=== PATIENT | male | born 1955 | race African-American/Black ===

== ENCOUNTER 2016-07-06 14:27 | Inpatient (IN) | payer BC ==
[~2016-07-06] VITALS: Ht 185.4 cm; Wt 97.5 kg
--- NOTE | ~2016-07-06 | H ---
[facility] [place] [address] HISTORY AND PHYSICAL Name: RONABLAKE Room #: 416-P [facility] IN M.R.#: [id number] Admission: 07/06/16 Attend Phys: Johnnie Frazier MD Discharge: Date of : 57 Report #: [id number] THIS REPORT FOR: //name// CC: Johnnie Frazier MARILU GARSIA DATE OF SERVICE: 07/06/2016 TYPE OF DICTATION: Admission H and P after amis-rd-tqkg encounter. I did see the patient and examined him on the day of admission. CHIEF COMPLAINT: Right big toe pain and swelling. HISTORY OF PRESENT ILLNESS: A 60-year-old male came today to the ER complaining of pain and swelling in the right big toe. He stated that these have been going on for 2 days only. He was just seen here a year ago secondary to left foot infection and he underwent amputation for that. He is worried about infection and amputation. The patient denies any fever or chills. He denies any pain other than this right big toe. REVIEW OF SYSTEMS: Except that mentioned in HPI, all other systems are negative. PAST MEDICAL HISTORY: Significant for type 2 diabetes mellitus. MEDICATIONS: See admission reconciliation sheet. ALLERGIES: No known drug allergies. SOCIAL HISTORY: He does not smoke, occasional alcohol drink, denies any illicit drugs. FAMILY HISTORY: Positive for diabetes mellitus. PHYSICAL EXAMINATION: GENERAL: He is alert, oriented, not in acute distress. HEENT: PERRLA. Intact extraocular muscles. No icterus. VITAL SIGNS: Temperature 36.9, pulse 89, respirations 16 and blood pressure 120/77. CHEST: Good air entry both sides. Normal respiratory effort. CARDIOVASCULAR: Regular rate and rhythm. No murmur, rub or gallop. ABDOMEN: Lax, nontender, positive bowel sounds, no organomegaly appreciated. EXTREMITIES: No cyanosis, clubbing or edema. Left foot, there is amputation of the 2 medial toes. On the right side, the big toe is swollen, tender, and seems to have . NEUROLOGIC: Cranial nerves 2-12 are intact. No focal neurological signs. [facility] [address] [address] HISTORY AND PHYSICAL Name: BLAKE REA Room #: 416-P [facility] IN [facility].#: [id number] Admission: 07/06/16 Attend Phys: Johnnie Frazier MD Discharge: Date of : 56 Report #: [id number] PSYCHIATRIC: Normal mood, affect and judgment. LABORATORY DATA: White count 10.5, hemoglobin 12.2 and hematocrit 35.9, normal differential. Sodium 133, potassium 4.2, chloride 98, carbon dioxide 24, BUN 16, creatinine 1.2, glucose 381, lactic acid 1.4, and calcium 9.8. ASSESSMENT AND PLAN: 1. Right big toe infection. We are going to admit the patient to the hospital, going to start him on Zosyn and vancomycin at the same time. At the same time, cultures were obtained from the tissue and blood cultures were obtained also. Three x-rays of the right foot did show soft tissue gas involving the great toe, necrotizing infection. There is no radiographic evidence of osteomyelitis. 2. We are going to continue his treatments for noninsulin-dependent diabetes mellitus and put him on sliding scale insulin in the same time as his blood sugars are very elevated at 380s. 3. The patient is going to be full code. 4. Deep venous thrombosis and gastrointestinal prophylaxis in the form of Lovenox and PPI. <ELECTRONICALLY SIGNED> By: Johnnie Frazier MD 07/07/16 0921 1724 [id number] Johnnie Frazier MD /nt
--- NOTE | ~2016-07-06 | HC ---
[facility] [place] [address] CONSULTATION Name: BLAKE REA Room #: 416-P [facility] IN M.R.#: [id number] Admission: 07/06/16 Attend Phys: Johnnie Frazier MD Discharge: Date of : 57 Report #: [id number] THIS REPORT FOR: //name// CC: Johnnie Frazier MARILU GARSIA DATE OF SERVICE: 07/06/2017 INFECTIOUS DISEASE CONSULTATION ATTENDING PHYSICIAN: Johnnie Frazier MD REASON FOR EVALUATION: Right great toe necrotizing infection. HISTORY OF PRESENT ILLNESS: Chart reviewed, patient examined. This is a 60-year-old male with known history of diabetes mellitus, apparently does not check her sugars frequently, has been on oral hypoglycemics, who noted over the course of roughly 1 to 2 days prior to admission had changes noted in his right great toe, this is of interest, and roughly a year ago, he had developed a similar type signs and symptoms associated with his left toe, this led to amputation. He has some degree of pain and it was increasing which raised his concern. It is not clear that he had fevers. Denies any significant pulmonary or gastrointestinal-related complaints. On evaluation, he was found to have plain film evidence of the right foot with soft tissue gas involving the 1st digit compatible with necrotizing infection. He is scheduled to undergo operative debridement tomorrow and possible amputation. He was started on combination therapy with piperacillin, tazobactam, as well as vancomycin. He is not overtly toxic. ALLERGIES: None known. CURRENT MEDICATIONS: Include ____, glimepiride, vancomycin, sliding scale insulin, Zosyn, and p.r.n. analgesics. PAST MEDICAL HISTORY: Diabetes mellitus type 2, non-insulin requiring, previous left great and second toe amputation. SOCIAL HISTORY: Nonsmoker, occasional ethanol, no illicit drug use. FAMILY HISTORY: Noncontributory. REVIEW OF SYSTEMS: As above. PHYSICAL EXAMINATION: GENERAL: He is alert, cooperative, appropriate, mild distress. VITAL SIGNS: Temperature 98.8, pulse 94, respirations 18, blood pressure [facility] [address] [place] [address] CONSULTATION Name: BLAKE REA Room #: 416-P [facility] IN M.R.#: [id number] Admission: 07/06/16 Attend Phys: Johnnie Frazier MD Discharge: Date of : 57 Report #: [id number] 146/70, appears generally well-nourished. HEENT: Unremarkable. NECK: Supple. LUNGS: Clear to auscultation. HEART: Regular, no appreciable murmur. ABDOMEN: Soft, nontender. EXTREMITIES: Right great toe has skin changes noted at the distal aspect. There is clear evidence of breakdown in the tissue, although the skin is intact. There is a desiccated appearance and feel it is mildly tender. GENITOURINARY AND RECTAL: Deferred. LABORATORY DATA: Sed rate of 91. Lactic acid 1.4. CBC: White count of 10.5, H and H 12.2 and 35.9, platelets of 184. Electrolytes: Sodium 133, potassium 4.2, chloride 98, bicarbonate 24, BUN and creatinine 16 and 1.2, glucose was 381, estimated GFR of 75. ASSESSMENT: Deep right great toe infection. I agree with empiric antimicrobial therapy. The definitive treatment, however, would be a surgical debridement, remove all the nonviable tissue. It is rather interesting that ____ appear during the cold temperature month ____ spastic-type process, it is unclear. We will await MRI results. This would likely need parenteral therapy on discharge. <ELECTRONICALLY SIGNED> By: Jaya Pratt MD 07/08/16 1000 1946 15 Jaya Pratt MD /nt
--- NOTE | ~2016-07-06 | HC ---
[facility] [place] [address] CONSULTATION Name: BLAKE REA Room #: 416-P ADM IN M.R.#: [id number] Admission: 07/06/16 Attend Phys: Johnnie Frazier MD Discharge: Date of : 57 Report #: [id number] THIS REPORT FOR: //name// CC: Johnnie Frazier MARILU GARSIA He was admitted yesterday 07/06/2016. This is a Podiatry consultation PHYSICIAN: Dr. Alexandria Contreras. HISTORY OF PRESENT ILLNESS: The patient is a 60-year-old male with a known history of diabetes, neuropathy, and at this time, uncontrolled diabetes. He was admitted yesterday for increased pain and swelling to his right big toe and the top of his foot, he has had issues with wound and infections to both feet in the past. He has Charcot bilateral, he has a history of having his left first and second toes amputated last year in June due to similar situation with gas gangrene to his toes at that time. The big toe pain he states he first noticed yesterday before being admitted yesterday evening and has been on empirical antibiotics. He does not appear toxic. PHYSICAL EXAMINATION: LOWER EXTREMITY: Complete collapse of arches bilateral with a mild mid foot rocker-bottom, bilateral, he has got absent left hallux and second toes. He has got hammertoe contractures. Bill feet with palpable DP pulses. PT is hard to palpate bilateral. There are no breaks in the skin to the left foot. On the right hallux, there is a large bulla present to the distal phalanx or to the distal toe encompassing the whole distal phalanx and extending to plantar lateral to the hallux IPJ and plantar lateral base of the proximal phalanx. There is ascending erythema and edema to the dorsal forefoot. There is no break in the foot and there is pain on palpation of the right hallux and dorsal foot. LABORATORY DATA: ESR 91. Lactic acid within normal limits. White blood cell within normal limits. H and H is 12.2 and 35.9. His glucose was at 381 on admission. His x-ray shows soft tissue emphysema encompassing the distal phalanx on the right. On the MRI came back with osteomyelitis of the right hallux and also with a pocket of gas to the distal phalanx hallux, extending to plantar IPJ level. PLAN: Discussed the patient's condition in great detail with them. He is afebrile with no leukocytosis. I reviewed the x-ray and the MRI. I recommended right hallux amputation and he will be [address] [address] CONSULTATION Name: BLAKE REA Room #: 416-P [facility] IN M.R.#: [id number] Admission: 07/06/16 Attend Phys: Johnnie Frazier MD Discharge: Date of : 57 Report #: [id number] n.p.o. after midnight. I The MRI shows definitive osteomyelitis in the distal phalanx, but there is soft tissue infection surrounding the proximal phalanx. This tissue will likely have to be removed. He agreed with plan. Surgical consent was signed and placed in the chart. I reviewed risks and benefits of surgery included but not limited to continued infection, difficulty healing, possible need for more proximal amputation, loss of limb, transfer wounds, DVT, balance issues, and continued pain. I answered all his questions and concerns. He will continue antibiotics per Dr. Delarosa's recommendations and an intraoperative culture will be obtained. <ELECTRONICALLY SIGNED> By: Alexandria Contreras DPM 07/08/16 0905 2103 0752 Alexandria Contreras DPM /nt
--- NOTE | ~2016-07-06 | HC ---
[facility] [place] [address] CONSULTATION Name: BLAKE REA Room #: 416-P [facility] IN M.R.#: [id number] Admission: 07/06/16 Attend Phys: Johnnie Frazier MD Discharge: Date of : 57 Report #: [id number] THIS REPORT FOR: //name// CC: [facility]nie [facility] DATE OF SERVICE: 07/11/2016 ENDOCRINE PROGRESS NOTE Readjusting insulin q.i.d. to improve glucose control. FBS much lower at 172. Highest glucose past day equals 266 at 0700 hours. Total insulin dosage yesterday of 47 units. <ELECTRONICALLY SIGNED> By: Daljit Casanova MD 07/12/16 1057 0833 0925 Daljit Casanova MD /nt
--- NOTE | ~2016-07-06 | S ---
[facility] [address] [address] SURGICAL PATH RPT PROCEDURE Name: BLAKE ANTHONY Room #: 416-P ADM IN M.R.#: [id number] Admission: 07/06/16 Date of : 57 Discharge: Report #: [id number] Path Case #: [id number] PATHOLOGY REPORT COLLECTION DATE: 07/07/2016 RECEIVED DATE: 07/09/2016 SUBMITTING PHYS: Dr. Alexandria Contreras OTHER PHYS: Dr. José Miguel Frazier SPECIMEN(S) RECEIVED: A.Right great toe * * * * * * * * * * * * FINAL DIAGNOSIS: "Right great toe", amputation: - Skin and subcutaneous tissue with acute and chronic inflammation, necrosis, granulation tissue and pseudoepitheliomatous hyperplasia. - Decalcified bone with acute osteomyelitis. (CLW:all; d/t: 07/10/2016) PATHOLOGIST: Roseline Antoine M.D. REPORT ELECTRONICALLY SIGNED BY: Roseline Antoine M.D. DATE/TIME: 07/10/2016 16:52 * * * * * * * * * * * * GROSS PATHOLOGY: The specimen is received in formalin labeled "Blake Anthony, right great toe". Received is an amputated digit measuring 4.3 x 3.9 x 3.8 cm in greatest dimensions and separately submitted segment of bone, displaying smooth articulating surfaces, measuring 4.7 x 2.5 x 2.1 cm. The bone margin of the toe is smooth and concave in appearance, consistent with disarticulation. The nail is present displaying a foster-richards and thickened appearance measuring 2.2 x 1.1 x 0.5 cm. The epidermal surface displays a lesion at the distal aspect near the nailbed, which is well-circumscribed, irregular in contour, focally crusted and light brown measuring 2.0 x 1.8 cm, which is 2.4 cm from the closest skin margin. The specimen is submitted representatively as follows: A1-A4 full-thickness cross section through amputated digit, following decalcification A5-A7 full-thickness cross section through separately submitted segment of bone, following decalcification. (CAA; 07/09/2016) [facility] [place] [address] SURGICAL PATH RPT PROCEDURE Name: RONABLAKE Mahendra Room #: 416-P ADM IN M.R.#: [id number] Admission: 07/06/16 Date of : 57 Discharge: Report #: [id number] Path Case #: [id number] CLINICAL HISTORY: Infected right great toe INITIAL CPT CODE(S): A; 98171, 66868 Professional services performed by [facility] at [facility] [address] [place] [address] Technical services performed by [facility] at [address] [place] [address], [address], [place] [address]. [facility] [place] [address] PHONE: [phone] DIRECTOR: Danielito Flowers M.D. * * * END OF REPORT * * *
--- NOTE | ~2016-07-06 | HC ---
[facility] [place] [address] CONSULTATION Name: RONABLAKE Mahendra Room #: 416-P [facility] IN M.R.#: [id number] Admission: 07/06/16 Attend Phys: Johnnie Frazier MD Discharge: 07/12/16 Date of : 57 Report #: [id number] THIS REPORT FOR: //name// CC: Johnnie Frazier MARILU ZIMMERMANLINDA DATE OF SERVICE: 07/12/2016 ENDOCRINE PROGRESS NOTE Continuing to readjust insulin q.i.d. Control complicated by the patient eating extra food brought in by family. FBS lower today at 109. Highest glucose past day equals 214 at 2200. Total insulin dosage yesterday increased to 46 units. Hemoglobin A1c equals 11%, showing very poor prior control. C-peptide 1.7, showing some endogenous insulin secretion, although this may improve when glucotoxicity has resolved. <ELECTRONICALLY SIGNED> By: Daljit Casanova MD 08/02/16 1049 1101 1335 Daljit Casanova MD /nt
--- NOTE | ~2016-07-06 | HC ---
[facility] [place] [address] CONSULTATION Name: RONABLAKE Mahendra Room #: 416-P [facility] IN M.R.#: [id number] Admission: 07/06/16 Attend Phys: Johnnie Frazier MD Discharge: Date of : 57 Report #: [id number] THIS REPORT FOR: //name// CC: Johnnie Frazier MARILU GARSIA DATE OF SERVICE: 07/10/2016 Converting the patient to a different q.i.d. regimen with bedtime glargine which is a true basal insulin rather than detemir and proactively attempting to control peaks and valleys utilizing non-sliding scale prandial insulin. The patient education in progress; meanwhile, lab studies are still pending to evaluate prior control. Fasting glucose still elevated at 266. <ELECTRONICALLY SIGNED> By: Daljit Casanova MD 07/11/16829 9 Daljit Casanova MD /nt
--- NOTE | ~2016-07-06 | HC ---
[facility] [place] [address] CONSULTATION Name: RONABLAKE Room #: 416-P [facility] IN M.R.#: [id number] Admission: 07/06/16 Attend Phys: Johnnie Frazier MD Discharge: Date of : 57 Report #: [id number] THIS REPORT FOR: //name// CC: Johnnie GARSIA ENDOCRINOLOGY CONSULTATION PATIENT OF: Johnnie Frazier M.D., [address] [place] [address]. SUBJECTIVE: A 60-year-old black male recently hospitalized for surgical amputation of toes on the right foot. The patient is an extremely poor historian. He states he has had diabetes for approximately 3 years. He has been on apparently 2 mg of glimepiride daily. He is not on any specific diet. He has moderate activity. He does not monitor his glucose and he does not know the name of his current primary care physician. He is unaware of any family history of diabetes. He denies any problems with hypertension, hyperlipidemia, etc. He has a prior problem with gangrene of the toes of the left foot, needing prior amputation. Otherwise, there is essentially no prior diabetes information available at this time. The patient states he thinks his last A1c was greater than 10%, but he is not sure when this was performed. Since hospitalization, the patient has been treated with Levemir and sliding scale Aspart. Other current medications include 2 mg of glimepiride daily, gabapentin, vitamin E, morphine, ondansetron and possibly other medication. OBJECTIVE: LABORATORY DATA: Sodium 140, potassium 3.9, chloride 107, CO2 of 23, BUN 9 and creatinine 1.0. Last lab glucose was 156. AST 12, bilirubin 0.4, calcium 9.3, magnesium 1.7, uric acid 1.9, alkaline phosphatase 80, SGPT 15, total protein 7.1 and albumin 2.8. Cholesterol 146, triglycerides 75, HDL 33 and LDL 98. PHYSICAL EXAMINATION: GENERAL: Well-nourished, well-developed 60-year-old black male, in no acute distress. Toes are bandage and were not examined. VITAL SIGNS: Height is reported to be 6 feet 1, weight is 230 pounds. The patient is afebrile. Heart rate 70 and regular, blood pressure 122/50. HEENT: PERRL. NECK: Supple, without masses, tenderness or thyromegaly. CHEST: Clear to P and A. HEART: Regular rhythm, without murmurs, rubs or gallops. ABDOMEN: Benign, without masses, tenderness or organomegaly. EXTREMITIES: Show no edema, cyanosis or clubbing. Peripheral pulses 2+ and equal bilaterally. NEUROLOGIC: Grossly intact. ASSESSMENT: [address] [address] CONSULTATION Name: BLAKE REA Room #: 416-P ADM IN M.R.#: [id number] Admission: 07/06/16 Attend Phys: Johnnie Frazier MD Discharge: Date of : 57 Report #: [id number] 1. Diabetes mellitus, out of control. 2. Exogenous obesity with insulin resistance and hyperinsulinemia. 3. Complications of diabetes, including peripheral vascular disease and peripheral neuropathy leading to prior bilateral foot amputations. PLAN: 1. Will evaluate prior control with hemoglobin A1c and fructosamine. 2. Will check C-peptide to evaluate endogenous insulin secretory ability. 3. I have given the patient initial education in diet and diabetes. This will be followed up by formal dietary instruction. However, diabetes education will have to be obtained as an outpatient post hospital discharge. 4. Will continue 2 mg of glimepiride per day and will readjust glargine and aspart insulin in an effort to stabilize blood sugar. 5. The patient is aware that further management will need to be followed lifelong on an outpatient basis in order to lower glucose acutely and keep control as stable as possible to avoid worsening complications in the future. Thank you very much for this consultation. I will continue to follow the patient with you during the hospitalization in an effort to stabilize glucose control and allow for appropriate wound healing. <ELECTRONICALLY SIGNED> By: Daljit Casanova MD 07/11/16 0829 1804 2314 Daljit Casanova MD /nt
--- NOTE | ~2016-07-06 | HC ---
[facility] [place] [address] CONSULTATION Name: RONABLAKE Mahendra Room #: 416-P [facility]..#: [id number] Admission: 07/06/16 Attend Phys: Johnnie Frazier MD Discharge: 07/12/16 Date of : 57 Report #: [id number] THIS REPORT FOR: //name// CC: Johnnie Frazier MARILU ZIMMERMANLINDA DATE OF SERVICE: 07/08/2016 REASON FOR CONSULTATION: Diabetic foot complication of right foot with gangrene of foot, postoperative day #2, status post right great toe amputation. HISTORY OF PRESENT ILLNESS: The patient is a 60-year-old gentleman with non-insulin dependent diabetes mellitus, who controls his diabetes with oral hypoglycemics, glimepiride 6 mg p.o. daily and/or metformin 500 mg daily. He has not taken insulin. He may have had some complications of the left foot in the past not requiring surgery. The patient did present himself to the Emergency Room at [facility] with a history of increasing pain, tenderness and swelling of his right great toe. The patient has had gangrene of his left great toe last year, causing him to have amputation of the left great toe and left second toe. The patient began to have more pain, tenderness and swelling of the right great toe, similar to his previous symptoms. He presented himself to the Emergency Room with pain and swelling. He was admitted, placed on IV antibiotics. Dr. Alexandria Contreras was consulted, took him to surgery 2 days ago, on July 06, and performed amputation of the right great toe. The patient remains on IV antibiotics with local dressing changes. PAST MEDICAL HISTORY: Non-insulin dependent diabetes mellitus, controlled with oral hypoglycemics. PAST SURGICAL HISTORY: Bilateral ankle surgeries, triple arthrodesis, status post amputation of left 1st and 2nd toe one year ago. MEDICATIONS: Include hydrocodone, Bactrim prior to admission, glimepiride 6 mg daily, vitamin C, zinc, vitamin E and cyanocobalamin. ALLERGIES: No known drug allergies. SOCIAL HISTORY: The patient does not smoke. REVIEW OF SYSTEMS: Noncontributory. PHYSICAL EXAMINATION: GENERAL: Shows a well-appearing -Liberian male. VITAL SIGNS: He is afebrile. HEENT: Mucous membranes are moist. [address] [address] CONSULTATION Name: RONABLAKE Mahendra Room #: 416-P [facility] IN M.R.#: [id number] Admission: 07/06/16 Attend Phys: Johnnie Frazier MD Discharge: 07/12/16 Date of : 57 Report #: [id number] NECK: Supple. CHEST: Shows nonlabored respirations. HEART: Shows regular rate and rhythm. ABDOMEN: Soft. EXTREMITIES: Shows surgical absence of the left foot great toe and second toe, wounds healed. Dressings are removed from the right foot showing amputation of the right great toe with nylon sutures at the remnant base. Wound has minimal drainage and appears clean and well healing for this stage. Dressings were replaced with Betadine and a Kerlix dressing. IMPRESSION: 1. Non-insulin dependent diabetes mellitus with gangrene of right great toe. 2. Postoperative day #2 status post right great toe amputation. 3. Gangrene and cellulitis of right great toe, now status post amputation. PLAN: Continue IV antibiotics. Continue local wound care with Betadine paint, nonadherent dressing, Kerlix wrap and elevation of the foot. The patient has intact pedal pulses, and vascular workup does not seem to be indicated at this time. Wound care team will follow. The patient does have weak dorsalis pedis pulses. Arterial duplex Doppler ultrasound of the right lower extremity was done today showing a normal ultrasound appearance with flow velocities and waveforms normal throughout the right common femoral, superficial femoral artery, popliteal and calf arteries. No flow limiting stenoses were present. <ELECTRONICALLY SIGNED> By: Mark Magana MD 07/14/16 1215 1419 [id number] Mark Magana MD /nt
[~2016-07-06 14:27] MED LIST: ALEVE220 MG PO; AMARYL2 MG PO; BACTRIM DS TAB1 EACH PO; COLACE100 MG PO; HYDROCODONE-AP1 EAC6 PO; HYDROCODONE-APA1 TA1 PO; KERYDIN10 ML TP; METFORMIN HCL500 MG PO; VITAMIN B-12500 MC5 PO; VITAMIN C500 M1 PO; VITAMIN E400 UNIT PO; ZINC50 M1 PO
[2016-07-06 14:28] VITALS: BP 151/86
[2016-07-06 15:36] LABS: HEMATOCRIT 35.9 % (42.0-52.0); HEMOGLOBIN 12.2 gm/dL (14.0-18.0); MCH 31.3 pg (26.0-34.0); MCHC 33.9 % (28.0-37.0); MCV 92.2 fL (80.0-100.0); PLATELET COUNT 184 thou/uL (150-400); RDW 13.6 % (10.5-14.5); WBC 10.5 thou/uL (4.0-11.0)
[2016-07-06 15:37] LABS: MANUAL DIFF YES
[2016-07-06 15:46] LABS: CALCIUM 9.8 mg/dL (8.5-10.1); CREATININE 1.2 mg/dL (0.6-1.3); POTASSIUM 4.2 mmol/L (3.5-5.1)
[2016-07-06 15:54] LABS: ABSOLUTE NEUTROPHILS 8.7 thou/uL (1.4-8.2); TOTAL CELL COUNT 100
[2016-07-06 17:09] VITALS: BP 120/77
[2016-07-06 17:33] VITALS: BP 146/87
[2016-07-06 20:00] VITALS: BP 111/70
[2016-07-07] VITALS (8 sets, daily range): BP systolic 115–142; BP diastolic 68–84
[2016-07-07 04:30] LABS: HEMATOCRIT 33.2 % (42.0-52.0); HEMOGLOBIN 11.2 gm/dL (14.0-18.0); MCHC 33.9 % (28.0-37.0); MCV 91.5 fL (80.0-100.0); RBC 3.62 mil/uL (4.50-6.00); WBC 9.5 thou/uL (4.0-11.0)
[2016-07-07 05:24] LABS: ALBUMIN 2.8 g/dL (3.4-5.0); CALCIUM 9.4 mg/dL (8.5-10.1); CREATININE 1.2 mg/dL (0.6-1.3); POTASSIUM 3.7 mmol/L (3.5-5.1); TOTAL BILIRUBIN 0.4 mg/dL (<0.1-1.0); TOTAL PROTEIN 7.1 g/dL (6.4-8.2)
[2016-07-08 00:01] VITALS: BP 136/79
[2016-07-08 01:18] LABS: ABSOLUTE NEUTROPHILS 6.2 thou/uL (1.4-8.2); BASOPHILS 0.5 % (0.0-2.0); EOSINOPHILS 0.7 % (0.0-3.0); HEMATOCRIT 33.2 % (42.0-52.0); LYMPHOCYTES 18.7 % (24.0-44.0); MCH 30.8 pg (26.0-34.0); MCV 93.4 fL (80.0-100.0); MONOCYTES 11.2 % (1.0-8.0); PLATELET COUNT 202 thou/uL (150-400); POLYS 68.9 % (36.0-66.0); RBC 3.56 mil/uL (4.50-6.00); RDW 13.8 % (10.5-14.5); WBC 8.9 thou/uL (4.0-11.0)
[2016-07-08 01:24] LABS: MANUAL DIFF NO
[2016-07-08 01:42] LABS: CALCIUM 9.3 mg/dL (8.5-10.1); CREATININE 1.2 mg/dL (0.6-1.3); POTASSIUM 4.1 mmol/L (3.5-5.1)
[2016-07-08 04:00] VITALS: BP 128/83
[2016-07-08 07:45] VITALS: BP 130/83
[2016-07-08 11:50] VITALS: BP 126/81
[2016-07-08 16:40] VITALS: BP 147/82
[2016-07-08 21:00] VITALS: BP 122/78
[2016-07-09 04:00] VITALS: BP 119/80
[2016-07-09 05:39] LABS: ABSOLUTE NEUTROPHILS 4.4 thou/uL (1.4-8.2); BASOPHILS 0.3 % (0.0-2.0); EOSINOPHILS 2.6 % (0.0-3.0); HEMATOCRIT 33.2 % (42.0-52.0); LYMPHOCYTES 27.5 % (24.0-44.0); MANUAL DIFF NO; MCH 31.1 pg (26.0-34.0); MCHC 33.2 % (28.0-37.0); MCV 93.4 fL (80.0-100.0); MONOCYTES 9.8 % (1.0-8.0); PLATELET COUNT 219 thou/uL (150-400); POLYS 59.8 % (36.0-66.0); RBC 3.55 mil/uL (4.50-6.00); WBC 7.3 thou/uL (4.0-11.0)
[2016-07-09 06:07] LABS: CALCIUM 9.3 mg/dL (8.5-10.1); POTASSIUM 3.9 mmol/L (3.5-5.1)
[2016-07-09 08:00] VITALS: BP 133/89
[2016-07-09 17:04] VITALS: BP 122/49
[2016-07-09 19:25] VITALS: BP 143/80
[2016-07-10 04:10] VITALS: BP 173/90
[2016-07-10 08:25] VITALS: BP 149/80
[2016-07-10 13:11] LABS: C-PEPTIDE 1.7 ng/mL (1.1-4.4)
[2016-07-10 14:46] VITALS: BP 149/80
[2016-07-10 17:03] VITALS: BP 137/75
[2016-07-10 19:50] VITALS: BP 136/73
[2016-07-11 04:40] VITALS: BP 148/84
[2016-07-11 05:04] LABS: ABSOLUTE NEUTROPHILS 2.5 thou/uL (1.4-8.2); BASOPHILS 0.8 % (0.0-2.0); EOSINOPHILS 5.1 % (0.0-3.0); HEMATOCRIT 30.9 % (42.0-52.0); HEMOGLOBIN 10.5 gm/dL (14.0-18.0); LYMPHOCYTES 36.6 % (24.0-44.0); MCHC 33.9 % (28.0-37.0); MCV 91.5 fL (80.0-100.0); PLATELET COUNT 280 thou/uL (150-400); POLYS 47.5 % (36.0-66.0); RBC 3.37 mil/uL (4.50-6.00); WBC 5.3 thou/uL (4.0-11.0)
[2016-07-11 05:51] LABS: MANUAL DIFF NO
[2016-07-11 08:58] VITALS: BP 155/77
[2016-07-11 16:00] VITALS: BP 167/77
[2016-07-11 20:27] VITALS: BP 149/87
[2016-07-12] VITALS (8 sets, daily range): BP systolic 145–151; BP diastolic 80–89
[2016-07-12] MEDS ORDERED: AUGMENTIN 875-1 EACH PO (13:51)
[2016-07-12] MEDS ORDERED: HYDROCODONE-APA1 TA1 PO (13:51)
[2016-07-12] MEDS ORDERED: NEURONTIN 300300 M1 PO (13:51)
[2016-07-12] MEDS ORDERED: NOVOLOG100 UNIT/1 SUBQ (14:15)
[2016-07-12] MEDS ORDERED: LANTUS100 UNIT/M SUBQ (14:15)
== END 2016-07-12 16:41 | disposition home health service (06) | DRG 853 ==
LOC: ER 14:27 → EROBS 16:23 → 4N 16:23
PROVIDERS: Family Medicine; Hospitalist; Internal Medicine Endocrinology, Diabetes & Metabolism; Nurse Practitioner Family
PROC: 0Y6P0Z0 Detachment at Right 1st Toe, Complete, Open Approach (ICD-10-PCS; principal; 2016-07-07)
DX: A48.0 Gas gangrene (principal); E43 Unspecified severe protein-calorie malnutrition; M86.8X7 Other osteomyelitis, ankle and foot; L03.115 Cellulitis of right lower limb; E11.52 Type 2 diabetes mellitus with diabetic peripheral angiopathy with gangrene; A52.16 Charcot's arthropathy (tabetic); R20.8 Other disturbances of skin sensation; E11.65 Type 2 diabetes mellitus with hyperglycemia; I10 Essential (primary) hypertension; E78.5 Hyperlipidemia, unspecified; E66.09 Other obesity due to excess calories; E11.51 Type 2 diabetes mellitus with diabetic peripheral angiopathy without gangrene; E11.40 Type 2 diabetes mellitus with diabetic neuropathy, unspecified; Z83.3 Family history of diabetes mellitus; Z98.890 Other specified postprocedural states; Z79.899 Other long term (current) drug therapy; Z79.84 Long term (current) use of oral hypoglycemic drugs; Z68.28 Body mass index [BMI] 28.0-28.9, adult; Z89.422 Acquired absence of other left toe(s); Z89.412 Acquired absence of left great toe; Z28.21 Immunization not carried out because of patient refusal
CPT/HCPCS: 10091; 50010; 50101; 50386; 50951; 56525; 57091; 62110; 62850; 70005

== ENCOUNTER → 2016-07-18 | Outpatient (CLI) | payer BC ==
[~2016-07-18] MED LIST changes: +AUGMENTIN 875-1 EACH PO; +LANTUS100 UNIT/M SUBQ; +NEURONTIN 300300 M1 PO; +NOVOLOG100 UNIT/1 SUBQ
== END ==
LOC: HYPER 05-15 06:55
DX: T87.89 Other complications of amputation stump (principal); E11.621 Type 2 diabetes mellitus with foot ulcer; L97.511 Non-pressure chronic ulcer of other part of right foot limited to breakdown of skin; E11.610 Type 2 diabetes mellitus with diabetic neuropathic arthropathy; Z89.412 Acquired absence of left great toe; Z89.411 Acquired absence of right great toe; Z72.89 Other problems related to lifestyle; Y83.5 Amputation of limb(s) as the cause of abnormal reaction of the patient, or of later complication, without mention of misadventure at the time of the procedure

== ENCOUNTER → 2016-07-30 | Outpatient (CLI) | payer BC | LOC: HYPER 06:57 | DX: T81.89XD Other complications of procedures, not elsewhere classified, subsequent encounter (principal); E11.621 Type 2 diabetes mellitus with foot ulcer; L97.422 Non-pressure chronic ulcer of left heel and midfoot with fat layer exposed; L97.411 Non-pressure chronic ulcer of right heel and midfoot limited to breakdown of skin; E11.610 Type 2 diabetes mellitus with diabetic neuropathic arthropathy; M21.41 Flat foot [pes planus] (acquired), right foot; M21.42 Flat foot [pes planus] (acquired), left foot; Z72.89 Other problems related to lifestyle; Y83.8 Other surgical procedures as the cause of abnormal reaction of the patient, or of later complication, without mention of misadventure at the time of the procedure ==

== ENCOUNTER → 2017-02-26 | Outpatient (CLI) | payer BC | LOC: HYPER 02-14 07:58 | DX: T81.89XA Other complications of procedures, not elsewhere classified, initial encounter (principal); E11.621 Type 2 diabetes mellitus with foot ulcer; L97.422 Non-pressure chronic ulcer of left heel and midfoot with fat layer exposed; R60.0 Localized edema; E11.610 Type 2 diabetes mellitus with diabetic neuropathic arthropathy; M21.42 Flat foot [pes planus] (acquired), left foot; Z72.89 Other problems related to lifestyle; Z89.412 Acquired absence of left great toe; Z89.411 Acquired absence of right great toe; Y83.8 Other surgical procedures as the cause of abnormal reaction of the patient, or of later complication, without mention of misadventure at the time of the procedure ==

== ENCOUNTER → 2017-03-04 | Outpatient (CLI) | payer BC | LOC: HYPER 07:11 | DX: T81.89XD Other complications of procedures, not elsewhere classified, subsequent encounter (principal); E11.621 Type 2 diabetes mellitus with foot ulcer; L97.422 Non-pressure chronic ulcer of left heel and midfoot with fat layer exposed; E11.610 Type 2 diabetes mellitus with diabetic neuropathic arthropathy; Z89.412 Acquired absence of left great toe; Z89.411 Acquired absence of right great toe; Z72.89 Other problems related to lifestyle; Y83.8 Other surgical procedures as the cause of abnormal reaction of the patient, or of later complication, without mention of misadventure at the time of the procedure ==

== ENCOUNTER → 2017-03-07 | Outpatient (CLI) | payer BC | LOC: HYPER 07:58 | DX: T81.89XD Other complications of procedures, not elsewhere classified, subsequent encounter (principal); E11.621 Type 2 diabetes mellitus with foot ulcer; L97.422 Non-pressure chronic ulcer of left heel and midfoot with fat layer exposed; E11.610 Type 2 diabetes mellitus with diabetic neuropathic arthropathy; M21.42 Flat foot [pes planus] (acquired), left foot; Z72.89 Other problems related to lifestyle; Z89.412 Acquired absence of left great toe; Z89.411 Acquired absence of right great toe; Y83.8 Other surgical procedures as the cause of abnormal reaction of the patient, or of later complication, without mention of misadventure at the time of the procedure ==

== ENCOUNTER → 2017-03-13 | Outpatient (CLI) | payer BC | LOC: HYPER 06:52 | DX: T81.89XD Other complications of procedures, not elsewhere classified, subsequent encounter (principal); E11.621 Type 2 diabetes mellitus with foot ulcer; L97.422 Non-pressure chronic ulcer of left heel and midfoot with fat layer exposed; R60.0 Localized edema; E11.610 Type 2 diabetes mellitus with diabetic neuropathic arthropathy; M21.42 Flat foot [pes planus] (acquired), left foot; Z89.422 Acquired absence of other left toe(s); Z89.421 Acquired absence of other right toe(s); Z72.89 Other problems related to lifestyle; Y83.8 Other surgical procedures as the cause of abnormal reaction of the patient, or of later complication, without mention of misadventure at the time of the procedure ==

== ENCOUNTER → 2017-03-20 | Outpatient (CLI) | payer BC | LOC: HYPER 07:01 | DX: T81.89XD Other complications of procedures, not elsewhere classified, subsequent encounter (principal); E11.621 Type 2 diabetes mellitus with foot ulcer; L97.422 Non-pressure chronic ulcer of left heel and midfoot with fat layer exposed; R60.0 Localized edema; E11.610 Type 2 diabetes mellitus with diabetic neuropathic arthropathy; M21.42 Flat foot [pes planus] (acquired), left foot; Z72.89 Other problems related to lifestyle; Z89.412 Acquired absence of left great toe; Y83.8 Other surgical procedures as the cause of abnormal reaction of the patient, or of later complication, without mention of misadventure at the time of the procedure ==

== ENCOUNTER → 2017-03-27 | Outpatient (CLI) | payer BC | LOC: HYPER 07:03 | DX: T81.89XD Other complications of procedures, not elsewhere classified, subsequent encounter (principal); E11.621 Type 2 diabetes mellitus with foot ulcer; L97.422 Non-pressure chronic ulcer of left heel and midfoot with fat layer exposed; R60.0 Localized edema; E11.610 Type 2 diabetes mellitus with diabetic neuropathic arthropathy; M21.42 Flat foot [pes planus] (acquired), left foot; Z89.412 Acquired absence of left great toe; Z89.411 Acquired absence of right great toe; Z72.89 Other problems related to lifestyle; Y83.8 Other surgical procedures as the cause of abnormal reaction of the patient, or of later complication, without mention of misadventure at the time of the procedure ==

== ENCOUNTER → 2017-04-03 | Outpatient (CLI) | payer BC | LOC: HYPER 07:12 | DX: T81.89XD Other complications of procedures, not elsewhere classified, subsequent encounter (principal); E11.621 Type 2 diabetes mellitus with foot ulcer; L97.422 Non-pressure chronic ulcer of left heel and midfoot with fat layer exposed; R60.0 Localized edema; E11.610 Type 2 diabetes mellitus with diabetic neuropathic arthropathy; M21.42 Flat foot [pes planus] (acquired), left foot; Z89.412 Acquired absence of left great toe; Z72.89 Other problems related to lifestyle; Y83.8 Other surgical procedures as the cause of abnormal reaction of the patient, or of later complication, without mention of misadventure at the time of the procedure ==

== ENCOUNTER → 2018-01-19 | Outpatient (CLI) | payer BC | LOC: HYPER 04-10 07:07 | DX: E11.621 Type 2 diabetes mellitus with foot ulcer (principal); L97.521 Non-pressure chronic ulcer of other part of left foot limited to breakdown of skin; L89.893 Pressure ulcer of other site, stage 3; E11.610 Type 2 diabetes mellitus with diabetic neuropathic arthropathy; M21.42 Flat foot [pes planus] (acquired), left foot ==

== ENCOUNTER → 2018-02-17 | Outpatient (CLI) | payer BC | LOC: HYPER 02-16 07:42 | DX: E11.621 Type 2 diabetes mellitus with foot ulcer (principal); L89.893 Pressure ulcer of other site, stage 3; L97.521 Non-pressure chronic ulcer of other part of left foot limited to breakdown of skin; E11.610 Type 2 diabetes mellitus with diabetic neuropathic arthropathy; M21.42 Flat foot [pes planus] (acquired), left foot ==

== ENCOUNTER → 2018-10-07 | Outpatient (CLI) | payer OTHER | LOC: HYPER 06:49 | DX: T87.89 Other complications of amputation stump (principal); E11.621 Type 2 diabetes mellitus with foot ulcer; L97.512 Non-pressure chronic ulcer of other part of right foot with fat layer exposed; L84 Corns and callosities; E11.610 Type 2 diabetes mellitus with diabetic neuropathic arthropathy; E11.40 Type 2 diabetes mellitus with diabetic neuropathy, unspecified; Z89.411 Acquired absence of right great toe; Z89.412 Acquired absence of left great toe; Y83.5 Amputation of limb(s) as the cause of abnormal reaction of the patient, or of later complication, without mention of misadventure at the time of the procedure ==

== ENCOUNTER → 2018-10-14 | Outpatient (CLI) | payer OTHER | LOC: HYPER 06:51 | DX: T87.89 Other complications of amputation stump (principal); E11.610 Type 2 diabetes mellitus with diabetic neuropathic arthropathy; M21.42 Flat foot [pes planus] (acquired), left foot; L84 Corns and callosities; Y83.5 Amputation of limb(s) as the cause of abnormal reaction of the patient, or of later complication, without mention of misadventure at the time of the procedure ==

== ENCOUNTER → 2018-11-19 | Outpatient (CLI) | payer OTHER | LOC: HYPER 06:47 | DX: T87.89 Other complications of amputation stump (principal); E11.621 Type 2 diabetes mellitus with foot ulcer; L97.511 Non-pressure chronic ulcer of other part of right foot limited to breakdown of skin; L89.893 Pressure ulcer of other site, stage 3; E11.610 Type 2 diabetes mellitus with diabetic neuropathic arthropathy; M21.42 Flat foot [pes planus] (acquired), left foot; L84 Corns and callosities; E11.40 Type 2 diabetes mellitus with diabetic neuropathy, unspecified; Y83.5 Amputation of limb(s) as the cause of abnormal reaction of the patient, or of later complication, without mention of misadventure at the time of the procedure ==

== ENCOUNTER → 2019-01-21 | Outpatient (CLI) | payer OTHER ==
[~2019-01-21] MED LIST changes: +AMOXICILLIN 50500 M1 PO; +GLUCOPHAGE1000 MG PO; +HYDROCODON-ACE1 EAC7 PO; +LISINOPRIL2.5 MG PO
== END ==
LOC: HYPER 06:55
DX: E11.621 Type 2 diabetes mellitus with foot ulcer (principal); L89.893 Pressure ulcer of other site, stage 3; L97.511 Non-pressure chronic ulcer of other part of right foot limited to breakdown of skin; E11.610 Type 2 diabetes mellitus with diabetic neuropathic arthropathy; E11.40 Type 2 diabetes mellitus with diabetic neuropathy, unspecified; L84 Corns and callosities; M21.42 Flat foot [pes planus] (acquired), left foot

== ENCOUNTER → 2019-02-12 | Outpatient (CLI) | payer OTHER | LOC: HYPER 08:02 | DX: E11.621 Type 2 diabetes mellitus with foot ulcer (principal); L97.521 Non-pressure chronic ulcer of other part of left foot limited to breakdown of skin; L97.511 Non-pressure chronic ulcer of other part of right foot limited to breakdown of skin; L89.893 Pressure ulcer of other site, stage 3; E11.610 Type 2 diabetes mellitus with diabetic neuropathic arthropathy; E11.40 Type 2 diabetes mellitus with diabetic neuropathy, unspecified; L84 Corns and callosities; M21.42 Flat foot [pes planus] (acquired), left foot ==

== ENCOUNTER → 2019-03-01 | Outpatient (CLI) | payer OTHER | LOC: HYPER 08:00 | DX: E11.621 Type 2 diabetes mellitus with foot ulcer (principal); L84 Corns and callosities; L97.511 Non-pressure chronic ulcer of other part of right foot limited to breakdown of skin; L89.893 Pressure ulcer of other site, stage 3; E11.610 Type 2 diabetes mellitus with diabetic neuropathic arthropathy; E11.40 Type 2 diabetes mellitus with diabetic neuropathy, unspecified; Z89.411 Acquired absence of right great toe ==

== ENCOUNTER → 2019-04-30 | Outpatient (CLI) | payer OTHER | LOC: MRI 03-05 14:29 → HYPER 08:12 | DX: E11.621 Type 2 diabetes mellitus with foot ulcer (principal); L97.511 Non-pressure chronic ulcer of other part of right foot limited to breakdown of skin; E11.40 Type 2 diabetes mellitus with diabetic neuropathy, unspecified; S61.217A Laceration without foreign body of left little finger without damage to nail, initial encounter; L84 Corns and callosities; L02.512 Cutaneous abscess of left hand; X58.XXXA Exposure to other specified factors, initial encounter; Y93.89 Activity, other specified; Y92.89 Other specified places as the place of occurrence of the external cause; Y99.8 Other external cause status ==

== ENCOUNTER → 2019-05-11 | Outpatient (CLI) | payer OTHER | LOC: HYPER 07:34 | DX: S61.217D Laceration without foreign body of left little finger without damage to nail, subsequent encounter (principal); S61.412D Laceration without foreign body of left hand, subsequent encounter; L02.512 Cutaneous abscess of left hand; L84 Corns and callosities; G62.9 Polyneuropathy, unspecified; X58.XXXD Exposure to other specified factors, subsequent encounter ==

== ENCOUNTER → 2019-05-18 | Outpatient (CLI) | payer OTHER | LOC: HYPER 07:47 | DX: S61.412D Laceration without foreign body of left hand, subsequent encounter (principal); E11.40 Type 2 diabetes mellitus with diabetic neuropathy, unspecified; L02.512 Cutaneous abscess of left hand; L84 Corns and callosities; X58.XXXD Exposure to other specified factors, subsequent encounter ==

== ENCOUNTER → 2019-05-25 | Outpatient (CLI) | payer OTHER | LOC: HYPER 07:39 | DX: S61.412D Laceration without foreign body of left hand, subsequent encounter (principal); L02.512 Cutaneous abscess of left hand; E11.40 Type 2 diabetes mellitus with diabetic neuropathy, unspecified; L84 Corns and callosities; Z79.84 Long term (current) use of oral hypoglycemic drugs; X58.XXXD Exposure to other specified factors, subsequent encounter ==

== ENCOUNTER → 2020-01-26 | Outpatient (CLI) | payer OTHER | LOC: RAD 15:24 | PROVIDERS: ATTEND Family Medicine | DX: S40.012A Contusion of left shoulder, initial encounter (principal); M54.9 Dorsalgia, unspecified; M47.812 Spondylosis without myelopathy or radiculopathy, cervical region; M48.02 Spinal stenosis, cervical region; M43.12 Spondylolisthesis, cervical region; M19.012 Primary osteoarthritis, left shoulder; Y92.89 Other specified places as the place of occurrence of the external cause; W19.XXXA Unspecified fall, initial encounter ==

== ENCOUNTER → 2020-04-19 | Outpatient (CLI) | payer OTHER | LOC: HYPER 15:19 | PROVIDERS: ATTEND Emergency Medicine | DX: S90.821D Blister (nonthermal), right foot, subsequent encounter (principal); E11.621 Type 2 diabetes mellitus with foot ulcer; L97.412 Non-pressure chronic ulcer of right heel and midfoot with fat layer exposed; L84 Corns and callosities; E11.40 Type 2 diabetes mellitus with diabetic neuropathy, unspecified; Z79.84 Long term (current) use of oral hypoglycemic drugs; Z89.411 Acquired absence of right great toe; X58.XXXD Exposure to other specified factors, subsequent encounter ==

== ENCOUNTER → 2020-04-26 | Outpatient (CLI) | payer OTHER | LOC: HYPER 10:27 | PROVIDERS: ATTEND Emergency Medicine | DX: E11.621 Type 2 diabetes mellitus with foot ulcer (principal); L97.412 Non-pressure chronic ulcer of right heel and midfoot with fat layer exposed; L84 Corns and callosities; E11.40 Type 2 diabetes mellitus with diabetic neuropathy, unspecified; Z79.84 Long term (current) use of oral hypoglycemic drugs; Z89.411 Acquired absence of right great toe ==

== ENCOUNTER → 2020-05-17 | Outpatient (CLI) | payer OTHER | LOC: HYPER 15:20 | PROVIDERS: ATTEND Emergency Medicine | DX: E11.621 Type 2 diabetes mellitus with foot ulcer (principal); L97.412 Non-pressure chronic ulcer of right heel and midfoot with fat layer exposed; L97.512 Non-pressure chronic ulcer of other part of right foot with fat layer exposed; L84 Corns and callosities; E11.40 Type 2 diabetes mellitus with diabetic neuropathy, unspecified; Z79.84 Long term (current) use of oral hypoglycemic drugs; Z89.411 Acquired absence of right great toe ==

== ENCOUNTER → 2020-05-24 | Outpatient (CLI) | payer OTHER | LOC: HYPER 15:40 | PROVIDERS: ATTEND Emergency Medicine | DX: E11.621 Type 2 diabetes mellitus with foot ulcer (principal); L97.412 Non-pressure chronic ulcer of right heel and midfoot with fat layer exposed; L84 Corns and callosities; E11.610 Type 2 diabetes mellitus with diabetic neuropathic arthropathy; E11.40 Type 2 diabetes mellitus with diabetic neuropathy, unspecified; E11.65 Type 2 diabetes mellitus with hyperglycemia; Z79.84 Long term (current) use of oral hypoglycemic drugs; Z89.411 Acquired absence of right great toe ==

== ENCOUNTER → 2020-05-30 | Outpatient (CLI) | payer OTHER | LOC: HYPER 09:45 | PROVIDERS: ATTEND Emergency Medicine | DX: E11.621 Type 2 diabetes mellitus with foot ulcer (principal); L97.412 Non-pressure chronic ulcer of right heel and midfoot with fat layer exposed; L84 Corns and callosities; E11.610 Type 2 diabetes mellitus with diabetic neuropathic arthropathy; E11.40 Type 2 diabetes mellitus with diabetic neuropathy, unspecified; E11.65 Type 2 diabetes mellitus with hyperglycemia; Z79.84 Long term (current) use of oral hypoglycemic drugs; Z89.411 Acquired absence of right great toe ==

== ENCOUNTER → 2020-06-13 | Outpatient (CLI) | payer OTHER | LOC: HYPER 15:05 | PROVIDERS: ATTEND Emergency Medicine | DX: E11.621 Type 2 diabetes mellitus with foot ulcer (principal); L97.412 Non-pressure chronic ulcer of right heel and midfoot with fat layer exposed; L84 Corns and callosities; E11.610 Type 2 diabetes mellitus with diabetic neuropathic arthropathy; E11.40 Type 2 diabetes mellitus with diabetic neuropathy, unspecified; E11.65 Type 2 diabetes mellitus with hyperglycemia; Z79.84 Long term (current) use of oral hypoglycemic drugs; Z89.411 Acquired absence of right great toe ==

== ENCOUNTER → 2020-06-15 | Outpatient (CLI) | payer BC, OTHER | LOC: MRI 10:18 | PROVIDERS: ATTEND Emergency Medicine | DX: M19.071 Primary osteoarthritis, right ankle and foot (principal); L97.512 Non-pressure chronic ulcer of other part of right foot with fat layer exposed; M14.671 Charcot's joint, right ankle and foot; E11.40 Type 2 diabetes mellitus with diabetic neuropathy, unspecified ==

== ENCOUNTER 2020-07-04 15:57 | Inpatient (IN) | payer BC, OTHER ==
[~2020-07-04] VITALS: Ht 185.4 cm; Wt 97.5 kg
--- NOTE | ~2020-07-04 | HC ---
[facility] [place] [address] CONSULTATION Name: BLAKE REA Room #: 434-P [facility] IN ..#: [id number] Admission: 07/04/20 Attend Phys: Sujit Magdaleno Discharge: Date of : 57 Report #: [id number] THIS REPORT FOR: cc: Janet Suazo MD, Nora P. MD Stephens, Thad A. MD ~ DATE OF SERVICE: 07/05/2020 WOUND CARE CONSULTATION PERSONAL PHYSICIAN: Dr. Janet Suazo CHIEF COMPLAINT: Right plantar foot ulcer, infected. HISTORY OF PRESENT ILLNESS: This is a 64-year-old black male who has been a patient of mine for several months, who we have been following for chronic ulceration on the plantar aspect of his right foot secondary to Charcot arthropathy, diabetes, approximately 2 weeks ago, the ulcer, which had been slowly getting better appeared to be somewhat worse. MRI was ordered at that time, which showed no signs of osteomyelitis or abscess. At that time, we changed over to a different dressing, which was Dakin's moist gauze and encouraged him to wear his [place] DEE-NI' boot at all times. The patient then showed up in my clinic yesterday and was found to have a foul smelling and foul drainage odor with increased size and depth and necrotic tissue. The patient at that time was directly admitted to the hospitalist service. It was felt the patient needed a repeat MRI per Orthopedics to evaluate for underlying osteomyelitis now. The patient has developed osteomyelitis that he will require lplid-ilr-onev amputation. There is no osteomyelitis. I plan on doing just a wide debridement and possible wound VAC therapy. The patient denies any other associated wounds. The patient does admit to the fact that his blood sugars have been consistently in the 300 range over the past several months. The patient only takes metformin at this time. The patient has no other associated wounds. PAST MEDICAL HISTORY: Significant for diabetes mellitus, poorly controlled, previous second toe amputation back in May 2015, previous amputation of the right great toe in 2016. CURRENT MEDICATIONS: Multiple, I reviewed the patient's medication list. DRUG ALLERGIES: None. SOCIAL HISTORY: The patient does not smoke. Drinks alcohol occasionally. Lives independently. [facility] [address] [place] [address] CONSULTATION Name: BLAKE REA Room #: 434-P [facility] IN ..#: [id number] Admission: 07/04/20 Attend Phys: Sujit Magdaleno Discharge: Date of : 57 Report #: [id number] FAMILY HISTORY: Not pertinent to current medical condition. REVIEW OF SYSTEMS: CONSTITUTIONAL: The patient denies fevers or chills. NEUROLOGIC: The patient denies numbness, tingling, weakness in arms or legs. Does have chronic neuropathy in his feet. EYES: No complaints. ENT: No complaints. CARDIAC: The patient denies chest pain, palpitations, peripheral edema. RESPIRATORY: The patient denies shortness of breath, cough or wheezes. GASTROINTESTINAL: The patient denies nausea, vomiting, abdominal pain. GENITOURINARY: The patient denies urgency or frequency. MUSCULOSKELETAL: No complaints. SKIN: Chronic ulcer on the plantar aspect of his right foot. PHYSICAL EXAMINATION: VITAL SIGNS: Temperature 37.2, pulse 86, respirations 20, BP 109/78. GENERAL: This is an alert and oriented x 3, pleasant black male who is in no obvious distress. HEENT: Normocephalic, atraumatic. Mucous membranes are somewhat dry. Pupils are round. Sclerae white. NECK: Without JVD. LUNGS: Clear. HEART: Regular. ABDOMEN: Soft, nontender. EXTREMITIES: The patient moves all extremities without difficulty. Distal pulses are intact. Plantar aspect of the right foot is a chronic ulcer, which is foul smelling with necrotic tissue. There is surrounding callus. There appears to probe down to bone; however, there is no bone exposed. No other associated wounds are noted. NEUROLOGIC: Cranial nerves 2-12 grossly intact. Motor and sensory grossly intact. LABORATORY VALUES: White count 5.6 and hemoglobin 11.5. Sed rate 60. BUN 23, creatinine 1.4, glucose was 433 on admission. IMPRESSION: 1. Diabetic ulcer on the right plantar foot with cellulitis. 2. Charcot arthropathy, right foot. 3. History of partial first ray amputation. 4. History of right great toe gangrene, status post amputation. 5. Uncontrolled type 2 diabetes. 6. Mild protein-calorie malnutrition, albumin 3.4. PLAN: We will have the start with Dakin's wet to dry dressings at this time, [address] [address] CONSULTATION Name: BLAKE REA Room #: 434-P [facility] IN M.R.#: [id number] Admission: 07/04/20 Attend Phys: Sujit Magdaleno Discharge: Date of : 57 Report #: [id number] pending current MRI and orthopedic evaluation. Make sure we might maximize patient's oral protein supplementation for healing. We will await orthopedic evaluation and pending on the MRI. If there is no osteomyelitis, then a wide excision will be done and possibly wound VAC placement. If there is osteomyelitis, the patient will require a tujag-csi-kcsu amputation. I had a long talk with the patient in regards to the amputation, spent greater than 30 minutes at the bedside with the patient and answering his questions and concerns were reviewing the lab work. The patient also would benefit from more tighter diabetic glycemic control. He is very agreeable to see an answering service agent. At this time, we will continue all other current medications. I appreciate ability to consult. By: [id number] Pranav Connors MD /andre
--- NOTE | ~2020-07-04 | O ---
[facility] [place] [address] OPERATIVE REPORT Name: BLAKE REA Room #: 434-P [facility] IN M.R.#: [id number] Admission: 07/04/20 Attend Phys: Sujit Magdaleno Discharge: Date of : 57 Report #: [id number] THIS REPORT FOR: cc: Janet Suazo MD, Nora P. MD Abraham,Juan Ospina MD ~ DATE OF SERVICE: 07/06/2020 PREOPERATIVE DIAGNOSIS: Right foot plantar diabetic ulcer. POSTOPERATIVE DIAGNOSIS: Right foot plantar diabetic ulcer. PROCEDURE: 1. Debridement, right foot plantar diabetic ulcer, 4 x 4 cm. 2. Placement of wound VAC, right foot ulcer. SURGEON: Dr. Juan Calzada ANESTHESIA: LMA. ESTIMATED BLOOD LOSS: 25 mL. SPECIMENS: Cultures were taken and sent. CONDITION UPON LEAVING THE OPERATING ROOM: Stable. INDICATIONS FOR PROCEDURE: The patient is a 64-year-old gentleman with right Charcot foot secondary to diabetes. He has had a plantar ulcer on his foot that is what appeared to be getting worse over the past several weeks. He had an MRI scan that showed no evidence of osteomyelitis and after discussion with him, he elected for local debridement of the ulcer and placement of wound VAC in hopes that we can get this to heal and avoid amputation. DESCRIPTION OF PROCEDURE: Risks, benefits, alternatives, complications were discussed in detail with the patient including but not limited to risk of anesthesia, risk of damage to nerves, arteries, blood vessels, risk for continued infection and need for midlm-zns-nxvu amputation. Informed consent was obtained from the patient. Right foot was appropriately marked in the preoperative holding area. He had already been on IV Zosyn for preoperative antibiotics. He was brought to the operating room and placed in supine position on operating room table. LMA anesthesia was induced without complication. Right lower extremity was prepped and draped in normal sterile fashion. Timeout was performed properly identifying the patient and procedure as well as the instrumentation. All in the operating room were in agreement. The edges of the ulcer were then debrided sharply with #10 blade until fresh bleeding tissue. [facility] [address] [place] [address] OPERATIVE REPORT Name: BLAKE REA Room #: 434-P [facility] IN M.R.#: [id number] Admission: 07/04/20 Attend Phys: Sujit Magdaleno Discharge: Date of : 57 Report #: [id number] The ulcer itself was debrided with a rongeur to good bleeding tissue were removed all visible necrotic and infected tissue. There was actually excellent bleeding tissue. This was thoroughly irrigated with Pulsavac lavage and then Prevena wound VAC was placed. The patient tolerated this procedure well and went to the recovery room under care of anesthesia postoperatively. By: [id number] Juan Calzada MD /nt
[~2020-07-04 15:57] MED LIST changes: -FREESTYLE LIBR1 EAC2 MISCELL; -LOSARTAN POTASS50 MG PO; -METFORMIN HCL1000 MG PO
[2020-07-04 16:21] VITALS: BP 122/77
[2020-07-04] MEDS ORDERED: METFORMIN HCL1000 MG PO (16:25)
[2020-07-04] MEDS ORDERED: LOSARTAN POTASS50 MG PO (16:26)
[2020-07-04 17:12] LABS: ABSOLUTE NEUTROPHILS 3.3 thou/uL (1.4-8.2); HEMATOCRIT 35.5 % (42.0-52.0); HEMOGLOBIN 11.5 gm/dL (14.0-18.0); LYMPHOCYTES 30.6 % (24.0-44.0); MCH 29.7 pg (26.0-34.0); MCHC 32.3 g/dL (28.0-37.0); MCV 92.1 fL (80.0-100.0); MONOCYTES 7.2 % (1.0-8.0); PLATELET COUNT 212 thou/uL (150-400); POLYS 59.2 % (36.0-66.0); RBC 3.85 mil/uL (4.50-6.00); RDW 14.4 % (10.5-14.5); WBC 5.6 thou/uL (4.0-11.0)
[2020-07-04 17:35] LABS: CALCIUM 10.9 mg/dL (8.5-10.1); CREATININE 1.4 mg/dL (0.7-1.3); POTASSIUM 4.5 mmol/L (3.5-5.1)
[2020-07-04 17:40] LABS: ALBUMIN 3.4 g/dL (3.4-5.0); TOTAL BILIRUBIN 0.2 mg/dL (0.2-1.0); TOTAL PROTEIN 7.8 g/dL (6.4-8.2)
[2020-07-04 20:46] VITALS: BP 122/77
[2020-07-04 21:20] VITALS: BP 127/82
[2020-07-04 21:45] VITALS: BP 123/69
[2020-07-05 03:30] VITALS: BP 121/72
--- NOTE | 2020-07-05 06:03 | NUR ---
PT WAS ADMITTED TO THE UNIT ROM THE ER IN A STABLE CONDITION.ADMISSION HX,EDUCATION AND ASSESSMENT COMPLETED.PT DENIED PAIN SO FAR.DRSG TO HIS WOUND ON PLANTAR R FOOT CHANGED.PT CONT ON IV ABX ORDERED.URINAL AT BEDSIDE.PT ABLE TO MAKE HIS NEEDS KNOWN.CALL LIGHT WITHIN REACH.
[2020-07-05 08:29] VITALS: BP 144/79
[2020-07-05] MEDS ORDERED: FREESTYLE LIBR1 EAC2 MISCELL (09:33)
--- NOTE | 2020-07-05 10:48 | NUR ---
Assumed care of pt at 0700. Pt a&ox4. Blood sugar in the 300s. Hospital doctor explained to pt extensively about diabetes medical management. After doctor leaves the room, pt states he is going to wait a little bit longer for wound doctor and ortho doctor and then he might leave the hospital later today. IV antibiotics infusing. Ritchie pain. Call light within reach. Will continue to monitor.
--- NOTE | 2020-07-05 15:30 | NUR ---
ASSESSMENT: CM REVIEWED CHART AND SPOKE WITH PT. PT IS ALERT AND ORIENTED X4. PT REPORTS LIVING IN A HOME ALONE. PT WAS ADMITTED WITH DIABETIC FOOT ULCER. WOUND CARE AND ORTHO HAVE BEEN CONSULTED AND PT IS ON IV ANBX. PT REPORTS HAVING A CANE AND WALKER AT HOME. PT REPORTS HE HAS HAD [facility] IN THE PAST. PTS PCP IS DR. MINI AMBRIZ. PT REPORTS HE IS AGREEABLE WITH HH AT DISCHARGE IF NEEDED AND NO PREFERENCE OF HH COMPANY AND IS OK WITH USING [facility] AGAIN. [facility].
[2020-07-05 17:18] VITALS: BP 109/78
[2020-07-05 19:10] VITALS: BP 110/59
--- NOTE | 2020-07-06 01:57 | NUR ---
PT DENIES PAIN. NPO SINCE MIDNOC FOR I/D OF FOOT WOUND. AFEBRILE. MAKES NEEDS KNOWN. SOCKS OVER FEET WHICH HAVE DRSG INTACT.
[2020-07-06 07:45] VITALS: BP 139/84
--- NOTE | 2020-07-06 13:10 | NUR ---
on-going assessment: CM REVIEWED CHART AND SPOKE WITH PT. PT HAD DEBRIDEMENT OF RIGHT FOOT WOUND TODAY AND PLACEMENT OF WOUNDVAC. CM SPOKE WITH ATTENDING WHO REPORTS PT WILL NEED WOUND VAC FOR HOME AND HOME HEALTH. DORIS SPOKE WITH PT AND HE HAS NO PREFERENCE OF COMPANY AND STATES USING [facility] IN THE PAST. PSYCHIATRICS REFERRAL SENT AND THEY CAN ACCEPT PT AND ARE AWARE HE WILL GO HOME WITH A WOUND VAC. CM NOTIFIED MARIE IN WOUNDCARE ABOUT HOME WOUND VAC AND SHE IS NOT HERE IN THE HOSPITAL TODAY BUT GAVE CONTACT TO BRUCE AT [facility] WHO HELPS ASSIST IN GEETING THE HOME WOUND VAC FOR PT. CM COMPLETED [employer] INSURANCE AUTH FORM AND FAXED TO [facility] AND NOTIFIED BRUCE AND HE STATES HE WILL START WORKING ON IT AND DEPENDING ON INSURANCE CAN TAKE 1-2 DAYS. PT ALSO STATING THAT HIS INSURANCE IS LIKELY GOING TO TERM SOON. HE REPORTS HE IS NO LONGER EMPLOYED SINCE 06/07 AND WAS TOLD HIS INSURANCE WAS STILL GOOD FOR 30 DAYS AFTER. CM NOTIFIED BRUCE AT [facility] AND HE REPORTS THEY WILL RUN IN THROUGH HIS INSURANCE AND THEN CAN WORK ON [employer] OR OTHER RESOURCES AFTER THAT. [facility]. FAX [facility] DISCHARGE ORDERS TO FAX:[phone]. ID HAS ALSO BEEN CONSULTED TO SEE PATIENT. PT WILL NOT BE ABLE TO LEAVE UNTIL HOME WOUND VAC IS DELIVERED TO THE HOSPITAL AND PLACED ON PATIENT. CONTACT FOR BRUCE AT [facility] FOR WOUND VAC IS [phone].
--- NOTE | 2020-07-06 15:13 | NUR ---
ON-GOING ASSESSMENT: CM REVIEWED CHART AND SPOKE WITH PT. PT HAD DEBRIDEMENT TODAY AND WOUND VAC WAS PLACED (PREVENA). PT IS STILL CURRENTLY ON IV ANBX. PT REPORTS THAT HE IS NO LONGER EMPLOYEED SINCE 06/07 AND THINKS HIS INSURANCE IS ONLY ACTIVE FOR 20 DAYS AFTER THAT AND SHOULD RUN OUT HERE SOON. PT IS NEEDING HOME HEALTH AND IS AGREEABLE TO USE [facility] WHO HE HAS HAD IN THE PAST. CM FAXED REFERRAL AND THEY HAVE ACCEPTED HIM. ONCE PATIENT IS STABLE TO DISCHARGE FAX ORDERS TO [facility]:[phone]. PT IS ALSO NEEDING CRUTCHES FOR AMBULATION. PT HAS NO PREFERENCE OF DME COMPANY. CM NOTIFIED LIASON AT [facility] AND SHE IS DELIVERING THEM TO HIS ROOM. ID WAS CONSULTED AND AWAITING FURTHER INPUT.
[2020-07-06 15:56] VITALS: BP 139/84
--- NOTE | 2020-07-06 18:12 | NUR ---
Assumed care of pt. at 0700. Pt. is calm and cooperative. Pt. was taken down for surgery at 0830. Pt. arrived back from surgery and complained of pain, PRN med given. Dr. Hooper came by and cleared pt. for discharge. Dr. Magdaleno notified, said to wait for I/D to see pt. Dr. Pratt visited with pt. and gave scripts for antibiotics. Dr. Magdaleno notified and I asked if he could finish discharge information, Dr. 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 Dr. Weber contacted about matter and said he was fine with that. Pt. or pt. daughter will come back for DC info and script for pain medicine tomorrow. Pt. discharged with all belongings.
[2020-07-07 01:06] LABS: GLYCOHEMOGLOBIN (HGB A1C) 12.2 % (4.8-5.6)
[2020-07-07] MEDS ORDERED: NOVOLOG FL100 UNIT/M SUBQ (10:15)
[2020-07-07] MEDS ORDERED: BD ULTRA-FINE1 EACH SUBQ (10:15)
[2020-07-07] MEDS ORDERED: LANTUS SOL100 UNIT/1 SUBQ (10:15)
--- NOTE | 2020-07-07 16:09 | HC ---
[facility] [place] [address] CONSULTATION Name: BLAKE REA Room #: 434-P [facility] IN ..#: [id number] Admission: 07/04/20 Attend Phys: Sujit Magdaleno Discharge: 07/06/20 Date of : 57 Report #: [id number] THIS REPORT FOR: cc: Janet Suazo MD, Nora P. MD Barry, Joseph W. MD ~ DATE OF SERVICE: 07/06/2020 INFECTIOUS DISEASE CONSULTATION ATTENDING PHYSICIAN: Dr. Magdaleno. REASON FOR EVALUATION: Diabetic foot ulcer, associated Charcot changes, felt to be secondarily infected, admitted for ongoing treatment including operative debridement. HISTORY OF PRESENT ILLNESS: Chart reviewed and the patient examined. This is a 64-year-old gentleman with diabetes mellitus complicated by peripheral neuropathy and Charcot foot, who has had a longstanding plantar ulcer, he dates at least 2 months. He had an initial bullous lesion that denuded and has been undergoing wound care with lack of response. Due to that, he was referred for admission. He did undergo MRI evaluation, which noted no particular bony changes that would suggest osteomyelitis nor was there any drainable fluid noted. He did undergo operative debridement. There was no evidence itself that reached the bone. He has been empirically started on combination therapy with vancomycin and Zosyn. ALLERGIES: None known. MEDICATIONS: Include insulin glargine, lisinopril, Zosyn, gabapentin, enoxaparin, insulin lispro, ____, zolpidem and vancomycin. PAST MEDICAL HISTORY: Diabetes mellitus type 2, this has been complicated by peripheral neuropathy, Charcot changes, previous right great toe amputation and left second toe amputation. SOCIAL HISTORY: Nonsmoker, occasional ethanol, no illicit drug use. FAMILY HISTORY: Noncontributory. REVIEW OF SYSTEMS: Otherwise, unremarkable. PHYSICAL EXAMINATION: GENERAL: He is alert, cooperative, appropriate, appears stable, mildly chronically ill appearing, otherwise not encephalopathic. [address] [address] CONSULTATION Name: BLAKE REA Room #: 434-P [facility] IN [facility].#: [id number] Admission: 07/04/20 Attend Phys: Sujit Magdaleno Discharge: 07/06/20 Date of : 57 Report #: [id number] VITAL SIGNS: Temperature 98.2, pulse 73, respirations 16, blood pressure 139/84. SKIN: Warm, dry, no rashes. HEENT: Unremarkable. NECK: Supple. LUNGS: Diminished breath sounds. HEART: Regular. ABDOMEN: Soft, nontender. EXTREMITIES: No cyanosis. There is a wound VAC in place over the plantar aspect of the right foot. GENITORECTAL: Deferred. LABORATORY DATA: Gram stain with many gram-negative rods, many gram-positive cocci, cultures pending. Reviewed operative report. Blood cultures are sterile thus far. Coronavirus PCR was negative. MRI of the foot noted 1.8 x 1.2 cm plantar soft tissue ulcer at the level of the calcaneocuboid joint without underlying abscess or drainable fluid collection. No findings of osteomyelitis. ____ at 1.0. Sed rate of 60. Lactic acid 2.0, CRP of less than 2.0. CBC: White count of 5.6, H and H 11.5 and 35.5, platelets of 212. ASSESSMENT AND PLAN: Chronic ulcer involving the plantar aspect, the patient with diabetes mellitus that has been complicated by Charcot changes and peripheral neuropathy. At this point, it has been well debrided. There is no evidence of deeper infection. Culture does suggest polymicrobial etiology. We will arrange for outpatient systemic therapy. I think we get by with oral. At this point, he is going to follow [facility]. I will see him in 2 weeks. <ELECTRONICALLY SIGNED> By: Jaya Pratt MD 07/07/20 [id number] Jaya Pratt MD /nt
== END 2020-07-06 19:45 | disposition home or self-care (01) | DRG 41 ==
LOC: ER 15:57 → EROBS 18:30 → 4S 18:30
PROVIDERS: Physician Assistant; ADMIT Hospitalist; ATTEND Hospitalist
PROC: 0JBQ0ZZ Excision of Right Foot Subcutaneous Tissue and Fascia, Open Approach (ICD-10-PCS; principal; 2020-07-06)
DX: A52.16 Charcot's arthropathy (tabetic) (principal); L03.115 Cellulitis of right lower limb; E44.1 Mild protein-calorie malnutrition; E11.621 Type 2 diabetes mellitus with foot ulcer; Z20.828 Contact with and (suspected) exposure to other viral communicable diseases; Z89.422 Acquired absence of other left toe(s); Z89.421 Acquired absence of other right toe(s); Z68.28 Body mass index [BMI] 28.0-28.9, adult
CPT/HCPCS: 10195; 50010; 50101; 70005

== ENCOUNTER → 2020-07-04 | Outpatient (CLI) | payer BC, OTHER ==
[~2020-07-04] MED LIST changes: +FREESTYLE LIBR1 EAC2 MISCELL; +LOSARTAN POTASS50 MG PO; +METFORMIN HCL1000 MG PO
== END ==
LOC: HYPER 14:28
PROVIDERS: ATTEND Emergency Medicine
DX: E11.621 Type 2 diabetes mellitus with foot ulcer (principal); L97.412 Non-pressure chronic ulcer of right heel and midfoot with fat layer exposed; L84 Corns and callosities; E11.610 Type 2 diabetes mellitus with diabetic neuropathic arthropathy; E11.40 Type 2 diabetes mellitus with diabetic neuropathy, unspecified; E11.65 Type 2 diabetes mellitus with hyperglycemia; G62.9 Polyneuropathy, unspecified; Z79.84 Long term (current) use of oral hypoglycemic drugs; Z89.411 Acquired absence of right great toe

== ENCOUNTER → 2020-07-12 | Outpatient (CLI) | payer OTHER ==
[~2020-07-12] MED LIST changes: +BD ULTRA-FINE1 EACH SUBQ; +FREESTYLE LIBR1 EAC2 MISCELL; +LANTUS SOL100 UNIT/1 SUBQ; +LOSARTAN POTASS50 MG PO; +METFORMIN HCL1000 MG PO; +NOVOLOG FL100 UNIT/M SUBQ
== END ==
LOC: HYPER 08:34
PROVIDERS: ATTEND Emergency Medicine
DX: T81.89XD Other complications of procedures, not elsewhere classified, subsequent encounter (principal); E11.621 Type 2 diabetes mellitus with foot ulcer; L97.412 Non-pressure chronic ulcer of right heel and midfoot with fat layer exposed; L84 Corns and callosities; E11.610 Type 2 diabetes mellitus with diabetic neuropathic arthropathy; E11.40 Type 2 diabetes mellitus with diabetic neuropathy, unspecified; E11.65 Type 2 diabetes mellitus with hyperglycemia; Z79.84 Long term (current) use of oral hypoglycemic drugs; Z89.411 Acquired absence of right great toe; Y83.8 Other surgical procedures as the cause of abnormal reaction of the patient, or of later complication, without mention of misadventure at the time of the procedure

== ENCOUNTER → 2020-09-07 | Outpatient (CLI) | payer OTHER | LOC: HYPER 16:02 | PROVIDERS: ATTEND Emergency Medicine | DX: T81.89XD Other complications of procedures, not elsewhere classified, subsequent encounter (principal); E11.621 Type 2 diabetes mellitus with foot ulcer; L97.412 Non-pressure chronic ulcer of right heel and midfoot with fat layer exposed; L84 Corns and callosities; E11.610 Type 2 diabetes mellitus with diabetic neuropathic arthropathy; E11.40 Type 2 diabetes mellitus with diabetic neuropathy, unspecified; E11.65 Type 2 diabetes mellitus with hyperglycemia; Z79.84 Long term (current) use of oral hypoglycemic drugs; Z89.411 Acquired absence of right great toe; Y83.8 Other surgical procedures as the cause of abnormal reaction of the patient, or of later complication, without mention of misadventure at the time of the procedure ==

== ENCOUNTER → 2020-11-07 | Outpatient (CLI) | payer OTHER | LOC: HYPER 09:49 | PROVIDERS: ATTEND Emergency Medicine | DX: T81.89XD Other complications of procedures, not elsewhere classified, subsequent encounter (principal); E11.621 Type 2 diabetes mellitus with foot ulcer; L97.412 Non-pressure chronic ulcer of right heel and midfoot with fat layer exposed; L84 Corns and callosities; E11.610 Type 2 diabetes mellitus with diabetic neuropathic arthropathy; E11.40 Type 2 diabetes mellitus with diabetic neuropathy, unspecified; E11.65 Type 2 diabetes mellitus with hyperglycemia; Z79.84 Long term (current) use of oral hypoglycemic drugs; Z89.411 Acquired absence of right great toe; Y83.8 Other surgical procedures as the cause of abnormal reaction of the patient, or of later complication, without mention of misadventure at the time of the procedure ==

== ENCOUNTER → 2021-03-28 | Outpatient (CLI) | payer OTHER | LOC: HYPER 07:53 | PROVIDERS: ATTEND Emergency Medicine | DX: T87.89 Other complications of amputation stump (principal); E11.621 Type 2 diabetes mellitus with foot ulcer; L97.412 Non-pressure chronic ulcer of right heel and midfoot with fat layer exposed; L97.522 Non-pressure chronic ulcer of other part of left foot with fat layer exposed; L84 Corns and callosities; E11.610 Type 2 diabetes mellitus with diabetic neuropathic arthropathy; E11.40 Type 2 diabetes mellitus with diabetic neuropathy, unspecified; E11.65 Type 2 diabetes mellitus with hyperglycemia; Z79.84 Long term (current) use of oral hypoglycemic drugs; Z89.411 Acquired absence of right great toe; Y83.8 Other surgical procedures as the cause of abnormal reaction of the patient, or of later complication, without mention of misadventure at the time of the procedure ==